=== PATIENT | male | born 1965 | race Caucasian/White ===

== ENCOUNTER → 2018-04-14 | Outpatient (CLI) | payer OTHER ==
[~2018-04-14] MED LIST: PROP20TA PO
== END | disposition home or self-care (01) ==
LOC: STAR 15:38
PROVIDERS: ATTEND Student in an Organized Health Care Education/Training Program
DX: Z02.9 Encounter for administrative examinations, unspecified (principal)

== ENCOUNTER 2018-04-24 06:48 | Day surgery (SDC) | payer OTHER ==
[~2018-04-24] VITALS: Ht 188 cm; Wt 135.0 kg
[2018-04-24] MEDS ORDERED: LACTATED RINGERS 1,000 ML IV SCH (06:59)
[2018-04-24] MEDS ORDERED: BUPIVACAINE/PF 0.5% ONE (07:02)
[2018-04-24] MEDS ORDERED: FENTANYL PF 250 MCG/5ML ONE (09:01)
[2018-04-24] MEDS ORDERED: MIDAZOLAM 1 MG/ML, 2ML ONE (09:01)
[2018-04-24] MEDS ORDERED: KETOROLAC 30 MG/1 ML ONE (09:09)
[2018-04-24] MEDS ORDERED: CEFAZOLIN 1,000 MG ONE (09:09)
[2018-04-24] MEDS ORDERED: DEXAMETHASONE 4 MG/ML, 5ML ONE (09:09)
[2018-04-24] MEDS ORDERED: ONDANSETRON 2MG/ML, 2ML ONE (09:09)
[2018-04-24] MEDS ORDERED: PROPOFOL 10 MG/ML, 20ML ONE (09:09)
[2018-04-24] MEDS ORDERED: OXYcodone 5 MG/5 ML ORAL.SOL UDC PO PRN (10:30)
[2018-04-24] MEDS ORDERED: MIDAZOLAM 1 MG/ML, 2ML IV PRN (10:30)
[2018-04-24] MEDS ORDERED: FENTANYL PF 100 MCG/2ML IV PRN (10:30)
[2018-04-24] MEDS ORDERED: ONDANSETRON 2MG/ML, 2ML IV PRN (10:30)
[2018-04-24] MEDS ORDERED: ACETAMINOPHEN 325 MG TABLET PO PRN (10:30)
[2018-04-24] MEDS ORDERED: MEPERIDINE/PF 25MG/0.5ML IVPush PRN (10:30)
[2018-04-24] MEDS ORDERED: HYDROmorphone 1 MG/ML, 1ML IV PRN (10:30)
[2018-04-24] MEDS ORDERED: OXYcodone 5 MG/5 ML ORAL.SOL UDC ONE (10:40)
[2018-04-24] MEDS ORDERED: ACETAMINOPHEN 650 MG/20.3 ML UDC ONE (10:40)
[2018-04-24] MEDS ORDERED: ACETAMINOPHEN 325 MG TABLET ONE (10:40)
[2018-04-24] MEDS ORDERED: DIPHENHYDRAMINE 50 MG/ML, 1ML ONE (11:53)
[2018-04-24] MEDS ORDERED: DIPHENHYDRAMINE 50 MG/ML, 1ML IVPush ONE (12:00)
== END 2018-04-24 12:30 | disposition home or self-care (01) ==
LOC: OUT 06:48
PROVIDERS: ATTEND Student in an Organized Health Care Education/Training Program
DX: N43.3 Hydrocele, unspecified (principal); F43.10 Post-traumatic stress disorder, unspecified; Z87.891 Personal history of nicotine dependence; Z88.6 Allergy status to analgesic agent; Z79.899 Other long term (current) drug therapy; Z98.890 Other specified postprocedural states
CPT/HCPCS: 55041; 88302; J0690; J1100; J1885; J2250; J2405; J2704; J3010; J3490; J7120